=== PATIENT | male | born 1985 | race Caucasian/White ===

== ENCOUNTER 2025-03-31 17:55 | Emergency (ER) | payer OTHER, SELFPAY ==
--- NOTE | 2025-03-31 17:57 | PC.NURSE ---
Pt refusing to be placed into a c-collar. Pt refusing to remove clothing or answer any questions at this time. Pt A/O x 4. Pt slurring speech with unsteady gait. Pt educated on risks of refusing care by RN and MD Prerna at bedside. Pt continuing to refuse care at this time.
--- NOTE | 2025-03-31 18:05 | PC.NURSE ---
[employer] at pt bedside. Julissa Eduardo #[id number].
[2025-03-31 18:10] VITALS: BP 150/94; PULSE 98; RESP 16; O2SAT 98
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
--- NOTE | 2025-03-31 18:52 | PC.NURSE ---
Handoff report given to DINA Miner.
--- NOTE | 2025-03-31 18:55 | PC.NURSE ---
ASSUMED CARE. PATIENT CURRENTLY SITTING ON THE EDGE OF THE BED. CURRENTLY REFUSING ALL TREATMENTS. ABRASIONS TO FACE. WOB NON LABORED. DENIES ANY NEEDS AT THIS TIME.
[2025-03-31 18:58] LABS: Add Urine Microscopic? YES; Appearance Urine Clear (Clear); Glucose Urine UA Negative (Negative); Leukocyte Esterase Ur Negative LEU/UL (Negative); Nitrate Urine Negative (Negative); Specific Grav Ur <= 1.005 (1.010-1.020)
--- NOTE | 2025-03-31 19:06 | PC.NURSE ---
PATIENT WAS ASKED IF HIS TETANUS IS UP TO DATE. PATIENT STATES NO AND I DONT WANT A NEW ONE. I DONT LIKE SHOTS. DR VARGHESE NOTIFIED
[2025-03-31 19:28] LABS: Cannabinoid Screen Urine Negative (Negative)
--- NOTE | 2025-03-31 19:36 | PC.NURSE ---
PATIENT WANDERING AROUND THE ROOM. COOPERATIVE WITH STAFF. CONTINUES TO REFUSE TREATMENTS.
--- NOTE | 2025-03-31 19:54 | PC.NURSE ---
PATIENT IS RESTING ON STRETCHER. CALM AND COOPERATIVE WITH STAFF
[2025-03-31 20:05] VITALS: BP 128/88; PULSE 108; RESP 18; O2SAT 100
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
--- NOTE | 2025-03-31 20:36 | PC.NURSE ---
ISP AT THE BEDSIDE.
== END 2025-03-31 21:07 | disposition home or self-care (01) ==
PROVIDERS: Emergency Provider Emergency Medicine; Referring Provider Family Medicine
DX: S06.0X0A Concussion without loss of consciousness, initial encounter (principal); S00.81XA Abrasion of other part of head, initial encounter; S00.01XA Abrasion of scalp, initial encounter; F10.10 Alcohol abuse, uncomplicated; V53.5XXA Driver of pick-up truck or van injured in collision with car, pick-up truck or van in traffic accident, initial encounter; Y90.9 Presence of alcohol in blood, level not specified
CPT/HCPCS: 80307; 81001; 99283; L0150